=== PATIENT | male | born 1965 | race African-American/Black ===

== ENCOUNTER 2018-07-20 16:45 | Emergency (ER) | payer MEDICAID ==
[~2018-07-20] VITALS: Ht 195.6 cm; Wt 123.0 kg
[2018-07-20 16:51] VITALS: BP 139/80
== END 2018-07-20 22:35 | disposition left against medical advice (07) ==
LOC: ER 16:45
DX: Z53.21 Procedure and treatment not carried out due to patient leaving prior to being seen by health care provider (principal)

== ENCOUNTER 2020-12-02 22:11 | Emergency (ER) | payer OTHER, MEDICAID ==
[~2020-12-02] VITALS: Ht 195.6 cm; Wt 138.0 kg
[2020-12-02] MEDS ORDERED: BO1 TP (23:28)
[2020-12-02] MEDS ORDERED: BACITRACIN ZINC OINT UDPKT TOP ONE (23:30)
[2020-12-03 00:10] VITALS: BP 164/101
== END 2020-12-03 00:11 | disposition home or self-care (01) ==
LOC: ER 22:11
DX: S91.202A Unspecified open wound of left great toe with damage to nail, initial encounter (principal); E11.9 Type 2 diabetes mellitus without complications; E78.00 Pure hypercholesterolemia, unspecified; I10 Essential (primary) hypertension; W18.39XA Other fall on same level, initial encounter; Y93.89 Activity, other specified; Y92.89 Other specified places as the place of occurrence of the external cause; Y99.8 Other external cause status
CPT/HCPCS: 82962; 99283

== ENCOUNTER 2022-09-08 18:53 | Inpatient (IN) | payer MEDICAID, OTHER ==
[~2022-09-08] VITALS: Ht 190.5 cm; Wt 134.3 kg
[~2022-09-08 18:53] MED LIST: BO1 TP
[2022-09-08] MEDS ORDERED: SODIUM CHLORIDE 0.9% 1000ML BAG (SEPSIS BOLUS) IV ONE (19:15)
[2022-09-08 20:20] LABS: CHLORIDE 102 mEq/L (98-107)
[2022-09-08 20:21] LABS: INR 1.2; PROTHROMBIN TIME 13.1 sec (9.6-11.0)
[2022-09-08 20:24] LABS: MEAN CORPUSCULAR HEMOGLOBIN 26.4 pg (28.0-32.0); MEAN CORPUSCULAR VOLUME 83.1 fL (80.0-94.0); MEAN PLATELET VOLUME 8.4 fl (7.4-10.4); PLATELET 409 x1000/uL (130-400); RED BLOOD CELL COUNT 2.66 mill/uL (4.7-6.1); RED CELL DISTRIBUTION WIDTH 18.8 % (11.6-14.6)
[2022-09-08 20:27] LABS: HEMATOCRIT. 22.1 % (42.0-52.0)
[2022-09-08] MEDS ORDERED: DEXT 10% WATER 1,000 ML IV ONE (20:30)
[2022-09-08 21:26] LABS: PLATELET ESTIMATE SLIGHTLY INCREASED
[2022-09-08] MEDS ORDERED: PIPERACILLIN/TAZ 3.375G PREMIX 50 ML IV ONE (21:45)
[2022-09-08] MEDS ORDERED: VANCOMYCIN 1G PREMIX 200 ML IV ONE (21:45)
[2022-09-08] MEDS ORDERED: DEXTROSE 50% WATER 50ML SYRINGE IV PRN (23:30)
[2022-09-08] MEDS ORDERED: GUAIFENESIN 200MG/10ML SUGAR FREE UDC PO PRN (23:30)
[2022-09-08] MEDS ORDERED: IPRATROPIUM/ALBUTEROL 0.5-3(2.5)MG/3ML NEB HHN PRN (23:30)
[2022-09-08] MEDS ORDERED: HYDROCODONE/ACETAMINOPHEN 5/325MG TABLET PO PRN (23:30)
[2022-09-08] MEDS ORDERED: ONDANSETRON HCL 4MG/2ML INJ IV PRN (23:30)
[2022-09-08] MEDS ORDERED: CLONIDINE 0.1MG TABLET PO PRN (23:30)
[2022-09-08] MEDS ORDERED: ACETAMINOPHEN 325MG TABLET PO PRN ×2 (23:30)
[2022-09-08] MEDS ORDERED: MAGNESIUM/ALUMINUM HYDROXIDE/SIMETHICONE 30ML UDC PO PRN (23:30)
[2022-09-08] MEDS ORDERED: DOCUSATE SODIUM 100MG CAPSULE PO PRN (23:30)
[2022-09-09] VITALS (14 sets, daily range): BP systolic 89–128; BP diastolic 53–89
[2022-09-09 00:08] LABS: PHOSPHORUS 6.7 mg/dL (2.5-4.9)
[2022-09-09] MEDS: BLOOD SUGAR DIAGNOSTIC STRIP TEST SCH ×4 (06:48→21:30)
[2022-09-09] MEDS: INSULIN LISPRO 100 UNITS/ML SUBCUT SCH ×4 (06:51→21:29)
[2022-09-09 07:21] LABS: HEMATOCRIT. 24.2 % (42.0-52.0); HEMOGLOBIN. 7.9 g/dL (14.0-18.0); MEAN CORPUSCULAR HEMOGLOBIN 27.1 pg (28.0-32.0); MEAN CORPUSCULAR VOLUME 82.6 fL (80.0-94.0); MEAN PLATELET VOLUME 8.2 fl (7.4-10.4); PLATELET 446 x1000/uL (130-400); RED BLOOD CELL COUNT 2.93 mill/uL (4.7-6.1); RED CELL DISTRIBUTION WIDTH 19.2 % (11.6-14.6)
[2022-09-09 07:28] LABS: CHLORIDE 98 mEq/L (98-107)
[2022-09-09 07:41] LABS: HDL CHOLESTEROL 41 mg/dL (40-59); LDL CHOLESTEROL 25 mg/dL (5-100); T4 FREE 0.91 ng/dL (0.76-1.46)
[2022-09-09] MEDS ORDERED: GABA-529 PO (09:27)
[2022-09-09] MEDS ORDERED: REN800 (09:27)
[2022-09-09] MEDS ORDERED: LATA2.5D14 EACHEYE (09:27)
[2022-09-09] MEDS ORDERED: ASPI-1406 PO (09:27)
[2022-09-09] MEDS ORDERED: FAMO20TA8 PO (09:27)
[2022-09-09] MEDS ORDERED: CALC-1305 PO (09:27)
[2022-09-09] MEDS ORDERED: DOLU1TAB PO (09:27)
[2022-09-09] MEDS ORDERED: NEPVIT PO (09:27)
[2022-09-09] MEDS ORDERED: ATOR-2 PO (09:27)
[2022-09-09] MEDS ORDERED: AMLO10TA80 PO (09:27)
[2022-09-09] MEDS ORDERED: NIFE-72 PO (09:27)
[2022-09-09] MEDS ORDERED: NALOXONE HCL 0.4MG/ML VIAL IV PRN (10:00)
[2022-09-09] MEDS: PIPERACILLIN/TAZOBACTAM 3.375 G in DEXTROSE 5% WATER 50 ML IV SCH ×2 (10:20→21:27)
[2022-09-09] MEDS: FOLIC ACID/VITAMIN B COMP W-C TABLET PO SCH (10:20)
[2022-09-09] MEDS: FAMOTIDINE 20MG TABLET PO SCH (10:20)
[2022-09-09] MEDS: ASPIRIN 81MG EC TABLET PO SCH (10:20)
[2022-09-09 12:23] LABS: PLATELET ESTIMATE SLIGHTLY INCREASED
[2022-09-09] MEDS ORDERED: CALCIUM CARBONATE PO SCH (17:00)
[2022-09-09] MEDS ORDERED: VITAMIN D3 PO SCH (17:00)
[2022-09-09] MEDS ORDERED: [UNRECOGNIZED DRUG - OTHER] PO SCH (17:00)
[2022-09-09 17:34] LABS: HEMATOCRIT 23.3 % (42.0-52.0); HEMOGLOBIN 7.2 g/dL (14.0-18.0)
[2022-09-09] MEDS: CALCIUM CARBONATE/VITAMIN D3 500MG TABLET PO SCH (17:39)
[2022-09-09 18:46] LABS: HEPATITIS B SURFACE ANTIGEN NEGATIVE
[2022-09-09] MEDS ORDERED: ATORVASTATIN CALCIUM 40MG TABLET PO SCH (21:00)
[2022-09-09] MEDS ORDERED: MEDICATION NOT ON FORMULARY EA (Atorvastatin Calcium 1 TAB) PO SCH (21:00)
[2022-09-09] MEDS: EPOETIN ALFA-EPBX 4,000 UNIT/ML VIAL SUBCUT SCH (21:32)
[2022-09-10] VITALS (10 sets, daily range): BP systolic 90–115; BP diastolic 47–69
[2022-09-10 02:32] LABS: HEMATOCRIT 24.9 % (42.0-52.0); HEMOGLOBIN 7.9 g/dL (14.0-18.0); MEAN CORPUSCULAR HEMOGLOBIN 26.4 pg (28.0-32.0); MEAN CORPUSCULAR VOLUME 83.3 fL (80.0-94.0); PLATELET 388 x1000/uL (130-400); RED BLOOD CELL COUNT 2.99 mill/uL (4.7-6.1)
[2022-09-10 03:16] LABS: INR 1.2
[2022-09-10] MEDS: BLOOD SUGAR DIAGNOSTIC STRIP TEST SCH ×4 (06:11→20:48)
[2022-09-10] MEDS ORDERED: SODIUM BICARBONATE 4% (2.4MEQ) 5ML VIAL IV ONE (07:25)
[2022-09-10] MEDS ORDERED: LIDOCAINE HCL/PF 1% 10 MG/ML 5ML VIAL ONE (07:25)
[2022-09-10] MEDS: INSULIN LISPRO 100 UNITS/ML SUBCUT SCH ×4 (07:40→20:48)
[2022-09-10 07:44] LABS: HEMATOCRIT. 24.9 % (42.0-52.0); HEMOGLOBIN. 7.9 g/dL (14.0-18.0); MEAN CORPUSCULAR HEMOGLOBIN 26.5 pg (28.0-32.0); MEAN CORPUSCULAR VOLUME 83.9 fL (80.0-94.0); MEAN PLATELET VOLUME 8.6 fl (7.4-10.4); PLATELET 375 x1000/uL (130-400); RED BLOOD CELL COUNT 2.97 mill/uL (4.7-6.1); RED CELL DISTRIBUTION WIDTH 18.6 % (11.6-14.6)
[2022-09-10 08:01] LABS: CHLORIDE 98 mEq/L (98-107)
[2022-09-10] MEDS: FOLIC ACID/VITAMIN B COMP W-C TABLET PO SCH (08:37)
[2022-09-10] MEDS: FAMOTIDINE 20MG TABLET PO SCH (08:37)
[2022-09-10] MEDS: CALCIUM CARBONATE/VITAMIN D3 500MG TABLET PO SCH ×2 (08:38→17:58)
[2022-09-10] MEDS: PIPERACILLIN/TAZOBACTAM 3.375 G in DEXTROSE 5% WATER 50 ML IV SCH (08:38)
[2022-09-10 13:10] LABS: PLATELET ESTIMATE NORMAL
[2022-09-10] MEDS: ASPIRIN 81MG EC TABLET PO SCH (16:02)
[2022-09-10 16:53] LABS: HEMATOCRIT 28.7 % (42.0-52.0); HEMOGLOBIN 9.2 g/dL (14.0-18.0)
[2022-09-10] MEDS: MIDODRINE HCL 5MG TABLET PO SCH (17:59)
[2022-09-11] VITALS (13 sets, daily range): BP systolic 112–142; BP diastolic 55–85
[2022-09-11] MEDS: PIPERACILLIN/TAZOBACTAM 3.375 G in DEXTROSE 5% WATER 50 ML IV SCH ×3 (00:18→20:38)
[2022-09-11] MEDS: BLOOD SUGAR DIAGNOSTIC STRIP TEST SCH ×4 (06:39→20:14)
[2022-09-11] MEDS: INSULIN LISPRO 100 UNITS/ML SUBCUT SCH ×4 (06:40→20:39)
[2022-09-11 07:18] LABS: BASOPHILS % 0.5 % (0.0-2.0); EOSINOPHILS % 0.4 % (0.0-5.0); HEMATOCRIT. 26.5 % (42.0-52.0); HEMOGLOBIN. 8.6 g/dL (14.0-18.0); LYMPHOCYTES % 8.5 % (20.0-50.0); MEAN CORPUSCULAR HEMOGLOBIN 26.7 pg (28.0-32.0); MEAN CORPUSCULAR VOLUME 82.6 fL (80.0-94.0); MEAN PLATELET VOLUME 8.6 fl (7.4-10.4); MONOCYTES % 11.6 % (2.0-8.0); PLATELET 420 x1000/uL (130-400); RED BLOOD CELL COUNT 3.21 mill/uL (4.7-6.1); RED CELL DISTRIBUTION WIDTH 18.4 % (11.6-14.6)
[2022-09-11 07:24] LABS: CHLORIDE 97 mEq/L (98-107)
[2022-09-11 09:09] LABS: ABSOLUTE LYMPHOCYTES 1.2 x10E3/uL (0.7-3.1); ABSOLUTE MONOCYTES 1.3 x10E3/uL (0.1-0.9); ABSOLUTE NEUTROPHILS 12.9 x10E3/uL (1.4-7.0); BASOPHILS 0 % (Not Estab.); HEMATOCRIT 23.5 % (37.5-51.0); HEMOGLOBIN 7.2 g/dL (13.0-17.7); IMMATURE GRANULOCYTES 1 % (Not Estab.); IMMATURE GRANULOCYTES ABSOLUTE 0.1 x10E3/uL (0.0-0.1); LYMPHOCYTES 8 % (Not Estab.); MEAN CORPUSCULAR HEMOGLOBIN 26.3 pg (26.6-33.0); MEAN CORPUSCULAR HGB CONC. 30.6 g/dL (31.5-35.7); MEAN CORPUSCULAR VOLUME 86 fL (79-97); MONOCYTES 8 % (Not Estab.); NEUTROPHILS 83 % (Not Estab.); PLATELETS 421 x10E3/uL (150-450); RBC 2.74 x10E6/uL (4.14-5.80); RED CELL DISTRIBUTION WIDTH 15.8 % (11.6-15.4); WBC 15.6 x10E3/uL (3.4-10.8)
[2022-09-11] MEDS ORDERED: SODIUM BICARBONATE 4% (2.4MEQ) 5ML VIAL IV ONE (09:14)
[2022-09-11] MEDS ORDERED: FENTANYL CITRATE/PF 50MCG/ML 2ML VIAL ONE (09:16)
[2022-09-11] MEDS: FAMOTIDINE 20MG/2ML VIAL IV SCH (09:23)
[2022-09-11] MEDS: MIDODRINE HCL 5MG TABLET PO SCH ×3 (10:56→16:51)
[2022-09-11] MEDS: FOLIC ACID/VITAMIN B COMP W-C TABLET PO SCH (10:56)
[2022-09-11 13:07] LABS: % CD 3 POS. LYMPHOCYTES 74.6 % (57.5-86.2); % CD 4 POS. LYMPHOCYTES 37.7 % (30.8-58.5); % CD 8 POS. LYMPH 38.2 % (12.0-35.5); ABSOLUTE CD 3 895 /uL (622-2402); ABSOLUTE CD 4 HELPER 452 /uL (359-1519); ABSOLUTE CD 8 SUPPRESSOR 458 /uL (109-897); CD4/CD8 RATIO 0.99 (0.92-3.72); HIV 1 ABS Reactive (Non Reactive); HIV 2 ABS Non Reactive (Non Reactive); HIV SCREEN 4G Preliminary Reactive (Non Reactive)
[2022-09-11] MEDS: CALCIUM CARBONATE/VITAMIN D3 500MG TABLET PO SCH (16:44)
[2022-09-11] MEDS: EPOETIN ALFA-EPBX 4,000 UNIT/ML VIAL SUBCUT SCH (20:38)
[2022-09-12] VITALS: BP 133/81
[2022-09-12 04:00] VITALS: BP 133/72
[2022-09-12] MEDS: BLOOD SUGAR DIAGNOSTIC STRIP TEST SCH ×2 (06:35→12:10)
[2022-09-12] MEDS: INSULIN LISPRO 100 UNITS/ML SUBCUT SCH ×3 (06:41→18:19)
[2022-09-12 08:00] VITALS: BP 135/75
[2022-09-12 08:39] LABS: BASOPHILS % 0.5 % (0.0-2.0); EOSINOPHILS % 0.1 % (0.0-5.0); HEMATOCRIT. 27.3 % (42.0-52.0); HEMOGLOBIN. 8.9 g/dL (14.0-18.0); LYMPHOCYTES % 8.4 % (20.0-50.0); MEAN CORPUSCULAR HEMOGLOBIN 26.8 pg (28.0-32.0); MEAN CORPUSCULAR VOLUME 82.4 fL (80.0-94.0); MEAN PLATELET VOLUME 8.7 fl (7.4-10.4); MONOCYTES % 11.5 % (2.0-8.0); NEUTROPHILS % 79.5 % (40.0-76.0); PLATELET 439 x1000/uL (130-400); RED BLOOD CELL COUNT 3.31 mill/uL (4.7-6.1); RED CELL DISTRIBUTION WIDTH 18.4 % (11.6-14.6)
[2022-09-12 09:07] LABS: CHLORIDE 98 mEq/L (98-107)
[2022-09-12] MEDS: MIDODRINE HCL 5MG TABLET PO SCH (10:12)
[2022-09-12] MEDS: CALCIUM CARBONATE/VITAMIN D3 500MG TABLET PO SCH ×2 (10:12→18:17)
[2022-09-12] MEDS: FOLIC ACID/VITAMIN B COMP W-C TABLET PO SCH (10:13)
[2022-09-12] MEDS: FAMOTIDINE 20MG/2ML VIAL IV SCH (10:13)
[2022-09-12] MEDS: PIPERACILLIN/TAZOBACTAM 3.375 G in DEXTROSE 5% WATER 50 ML IV SCH (10:13)
[2022-09-12 12:00] VITALS: BP 140/80
[2022-09-12] MEDS ORDERED: INSULIN GLARGINE 100 UNITS/ML SUBCUT SCH (15:30)
[2022-09-12 16:00] VITALS: BP 140/76
[2022-09-12] MEDS ORDERED: DOXY100C5 MT ×3 (16:02→16:49)
[2022-09-12] MEDS ORDERED: AMOX1TAB15 MT ×3 (16:02→16:49)
[2022-09-12] MEDS ORDERED: INSULIN LISPRO 100 UNITS/ML SUBCUT SCH (17:10)
[2022-09-12 18:24] VITALS: BP 140/80
[2022-09-12 20:06] LABS: HEPATITIS B SURFACE ANTIGEN NEGATIVE
[2022-09-14 19:09] LABS: INTERPRETATION HIV-1 Positive (.)
== END 2022-09-12 19:18 | disposition home or self-care (01) | DRG 890 ==
LOC: ER 18:53 → SUPCPDRO 22:21 → MICUSO 23:05 → EDBEDREQTM 23:10 → EDBEDREQ 23:10 → 8WST 09-09 04:46
PROVIDERS: ADMIT Internal Medicine; ATTEND Internal Medicine
PROC: 30233N1 Transfusion of Nonautologous Red Blood Cells into Peripheral Vein, Percutaneous Approach (ICD-10-PCS; 2022-09-09)
PROC: 5A1D70Z Performance of Urinary Filtration, Intermittent, Less than 6 Hours Per Day (ICD-10-PCS; 2022-09-09)
PROC: 0K9 Muscles, Drainage (ICD-10-PCS; principal; 2022-09-11)
PROC: 5A1D70Z Performance of Urinary Filtration, Intermittent, Less than 6 Hours Per Day (ICD-10-PCS; 2022-09-11)
DX: A41.9 Sepsis, unspecified organism (principal); B20 Human immunodeficiency virus [HIV] disease; G93.41 Metabolic encephalopathy; R65.20 Severe sepsis without septic shock; E43 Unspecified severe protein-calorie malnutrition; I31.39 Other pericardial effusion (noninflammatory); E11.52 Type 2 diabetes mellitus with diabetic peripheral angiopathy with gangrene; K68.12 Psoas muscle abscess; D63.1 Anemia in chronic kidney disease; E11.649 Type 2 diabetes mellitus with hypoglycemia without coma; J18.9 Pneumonia, unspecified organism; E87.1 Hypo-osmolality and hyponatremia; I12.0 Hypertensive chronic kidney disease with stage 5 chronic kidney disease or end stage renal disease; E88.09 Other disorders of plasma-protein metabolism, not elsewhere classified; N18.6 End stage renal disease; L03.115 Cellulitis of right lower limb; E11.22 Type 2 diabetes mellitus with diabetic chronic kidney disease; E78.00 Pure hypercholesterolemia, unspecified; K52.9 Noninfective gastroenteritis and colitis, unspecified; M19.071 Primary osteoarthritis, right ankle and foot; I51.7 Cardiomegaly; E11.621 Type 2 diabetes mellitus with foot ulcer; R74.01 Elevation of levels of liver transaminase levels; E78.5 Hyperlipidemia, unspecified; E66.9 Obesity, unspecified; E11.65 Type 2 diabetes mellitus with hyperglycemia; Z20.822 Contact with and (suspected) exposure to COVID-19; Z79.82 Long term (current) use of aspirin; Z99.2 Dependence on renal dialysis; Z79.4 Long term (current) use of insulin; Z79.899 Other long term (current) drug therapy; Z91.15 Patient's noncompliance with renal dialysis; Z83.3 Family history of diabetes mellitus; Z82.49 Family history of ischemic heart disease and other diseases of the circulatory system; Z68.37 Body mass index [BMI] 37.0-37.9, adult
CPT/HCPCS: 36415; 71045; 73620; 74176; 77012; 80053; 80061; 80202; 82962; 82977; 83036; 83605; 83735; 83880; 84100; 84145; 84439; 84443; 84484; 85014; 85018; 85025; 85027; 85384; 86359; 86360; 86701; 86702; 86705; 86709; 86803; 86850; 86900; 86920; 87075; 87328; 87340; 87389; 87426; 87536; 90935; 93005; 93306; 93923; 93970; 99291; J0885; J1815; J2405; J2543; J3010; J3370; J3490; J7030; J7060; P9016